=== PATIENT | male | born 1985 | race Caucasian/White ===

== ENCOUNTER → 2016-12-24 | Outpatient (CLI) | payer OTHER ==
[2016-12-24 09:05] LABS: SERUM ALBUMIN 4.5 g/dL (3.5-4.8)
== END ==
LOC: LAB 08:20
PROVIDERS: ATTEND Family Medicine
DX: R74.8 Abnormal levels of other serum enzymes (principal)
CPT/HCPCS: 36415; 80076

== ENCOUNTER → 2016-12-31 | Outpatient (CLI) | payer OTHER ==
[2016-12-31 08:22] LABS: LDL CHOLESTEROL,CALCULATED 66.2 mg/dL
== END ==
LOC: LAB 07:48
PROVIDERS: ATTEND Family Medicine
DX: E78.2 Mixed hyperlipidemia (principal)
CPT/HCPCS: 36415; 80061

== ENCOUNTER → 2017-04-10 | Outpatient (CLI) | payer OTHER ==
[2017-04-10 11:34] LABS: CHOL/HDL RATIO 5.37 RATIO (0-4.0); LDL CHOLESTEROL,CALCULATED 86.8 mg/dL
== END ==
LOC: LAB 10:27
PROVIDERS: ATTEND Family Medicine
DX: E78.5 Hyperlipidemia, unspecified (principal)
CPT/HCPCS: 36415; 80061